=== PATIENT | female | born 1965 | race African-American/Black ===

== ENCOUNTER 2018-02-24 20:24 | Inpatient (IN) | payer MEDICAID ==
[2018-02-24] MEDS: IV NORMAL SALINE 1000ML BAG 1,000 ML IV ×2 (20:30→22:10)
[2018-02-24 21:01] LABS: ADD MAN DIFF? NO
[2018-02-24 21:06] LABS: BILIRUBIN,URINE NEGATIVE (NEG); CLARITY,URINE CLEAR; COLOR,URINE YELLOW; GLUCOSE,URINE >=1000 mg/dL (NEG); NITRITE,URINE NEGATIVE (NEG); PH,URINE 6.5; PROTEIN,URINE 100 mg/dL (NEG-TRACE); UROBILINOGEN,URINE 0.2 mg/dL (0.2 mg/dL)
[2018-02-24 21:07] LABS: BASO # 0.1 x10^3/uL (0.0-0.2); BASO % 1 % (0-3); EOS # 0.1 x10^3/uL (0.0-0.7); EOS % 1 % (0-3); HEMATOCRIT 35.1 % (36.0-47.0); HEMOGLOBIN 11.5 g/dL (12.0-15.5); LYMPH # 2.1 x10^3/uL (1.0-4.8); LYMPH % 19 % (24-48); MEAN CORPUSCULAR HEMOGLOBIN 29 pg (25-35); MEAN CORPUSCULAR HGB CONC 33 g/dL (31-37); MEAN CORPUSCULAR VOLUME 89 fL (79-100); MONO # 1.1 x10^3/uL (0.0-1.1); MONO % 10 % (0-9); NEUT # 7.6 x10^3uL (1.8-7.7); NEUT % 69 % (31-73); PLATELET COUNT 348 x10^3/uL (140-400); RED BLOOD COUNT 3.95 x10^6/uL (3.50-5.40); WHITE BLOOD COUNT 10.9 x10^3/uL (4.0-11.0)
[2018-02-24] MEDS: IPRATRPIUM/ALBUTEROL 0.5/2.5MG 3 ML NEBU. NEB (21:12)
[2018-02-24 21:13] LABS: BACTERIA,URINE FEW /HPF (0-FEW); SQUAMOUS EPITHELIAL CELL,UR FEW /LPF; WBC,URINE OCC /HPF (0-4)
[2018-02-24 21:16] LABS: ANION GAP 5 (6-14); BLOOD UREA NITROGEN 21 mg/dL (7-20); BUN/CREATININE RATIO 21 (6-20); CALCIUM 8.7 mg/dL (8.5-10.1); CARBON DIOXIDE 29 mmol/L (21-32); CHLORIDE 106 mmol/L (98-107); GFR 70.7; GLUCOSE 406 mg/dL (70-99); POTASSIUM 4.7 mmol/L (3.5-5.1); SODIUM 140 mmol/L (136-145)
[2018-02-24 21:23] LABS: ALBUMIN 2.8 g/dL (3.4-5.0); ALBUMIN/GLOBULIN RATIO 0.7 (1.0-1.7); ALK PHOS 145 U/L (46-116); ALT (SGPT) 44 U/L (14-59); AST (SGOT) 26 U/L (15-37); TOTAL BILIRUBIN 0.6 mg/dL (0.2-1.0); TOTAL PROTEIN 6.6 g/dL (6.4-8.2)
[2018-02-24 21:24] LABS: LACTIC ACID 1.5 mmol/L (0.4-2.0)
[2018-02-24 21:26] LABS: TROPONINI < 0.017 ng/mL (0.000-0.055)
[2018-02-24 21:30] LABS: CKMB MASS 1.5 ng/mL (0.0-3.6); CREATINE KINASE 156 U/L (26-192)
[2018-02-24 21:30] LABS: NT-PRO BNP 604 pg/mL (0-124)
[2018-02-24] MEDS ORDERED: ONDANSETRON PF 4 MG/2 ML VIAL. IV (22:45)
[2018-02-24] MEDS ORDERED: DEXTROSE 50% 25 GM / 50ML DISP.SYRIN. IV (22:45)
[2018-02-24] MEDS: methylPREDNISolone SOD SUCC PF 125 MG/2 ML VIAL. IV (22:54)
[2018-02-24] MEDS: ACETAMINOPHEN 325 MG TABLET. PO (23:25)
[2018-02-25 00:17] LABS: POC GLUCOSE 322 mg/dL (70-99)
[2018-02-25 01:31] LABS: LACTIC ACID 0.7 mmol/L (0.4-2.0)
[2018-02-25] MEDS: IV NORMAL SALINE 1000ML BAG 1,000 ML IV (01:40)
[2018-02-25] MEDS: INSULIN GLARGINE 300 UNITS/3 ML INSULN.PEN. SQ ×3 (01:45→21:25)
[2018-02-25] MEDS: INSULIN LISPRO 300 UNITS/3 ML INSULN.PEN. SQ ×7 (01:47→21:00)
[2018-02-25] MEDS: ACETAMINOPHEN 325 MG TABLET. PO ×2 (03:43→08:29)
[2018-02-25 07:07] LABS: ADD MAN DIFF? NO
[2018-02-25 07:21] LABS: BASO # 0.1 x10^3/uL (0.0-0.2); BASO % 1 % (0-3); EOS % 0 % (0-3); LYMPH # 0.8 x10^3/uL (1.0-4.8); LYMPH % 7 % (24-48); MEAN CORPUSCULAR HEMOGLOBIN 29 pg (25-35); MEAN CORPUSCULAR HGB CONC 32 g/dL (31-37); MEAN CORPUSCULAR VOLUME 88 fL (79-100); MONO # 0.2 x10^3/uL (0.0-1.1); MONO % 2 % (0-9); NEUT # 9.7 x10^3uL (1.8-7.7); NEUT % 90 % (31-73); PLATELET COUNT 359 x10^3/uL (140-400); RED CELL DISTRIBUTION WIDTH 14.5 % (11.5-14.5); WHITE BLOOD COUNT 10.8 x10^3/uL (4.0-11.0)
[2018-02-25] MEDS: methylPREDNISolone SOD SUCC PF 40 MG/ML VIAL. IV ×3 (07:21→17:13)
[2018-02-25 07:25] LABS: ANION GAP 8 (6-14); BLOOD UREA NITROGEN 26 mg/dL (7-20); CARBON DIOXIDE 26 mmol/L (21-32); CHLORIDE 104 mmol/L (98-107); CREATININE 0.9 mg/dL (0.6-1.0); GFR 79.9; GLUCOSE 401 mg/dL (70-99); POTASSIUM 4.7 mmol/L (3.5-5.1); SODIUM 138 mmol/L (136-145)
[2018-02-25] MEDS ORDERED: INSULIN LISPRO 300 UNITS/3 ML INSULN.PEN. SQ ×2 (08:00→16:30)
[2018-02-25] MEDS: IPRATRPIUM/ALBUTEROL 0.5/2.5MG 3 ML NEBU. NEB ×4 (08:04→20:24)
[2018-02-25 08:21] LABS: POC GLUCOSE 329 mg/dL (70-99)
[2018-02-25] MEDS: ASPIRIN CHEWABLE 81 MG TABLET. PO (08:26)
[2018-02-25] MEDS: ARIPiprazole 5 MG TABLET PO (08:27)
[2018-02-25] MEDS: CALCIUM CARB/VIT D3 500/200 TABLET. PO (08:27)
[2018-02-25] MEDS: amLODIPine BESYLATE 10 MG TABLET PO (08:27)
[2018-02-25] MEDS: LISINOPRIL 20 MG TABLET PO (08:28)
[2018-02-25] MEDS: DOCUSATE SODIUM 100 MG CAPSULE. PO (08:31)
[2018-02-25] MEDS ORDERED: INSULIN GLARGINE 300 UNITS/3 ML INSULN.PEN. SQ (09:00)
[2018-02-25] MEDS ORDERED: NON FORMULARY ITEM (Albuterol Sulfate (Ventolin Hfa Inhaler) 2 PUFF) INH (09:00)
[2018-02-25] MEDS: FUROSEMIDE 40 MG/4 ML VIAL. IVP (09:58)
[2018-02-25] MEDS ORDERED: CONTRAST GIVEN MC (11:15)
[2018-02-25] MEDS: cefTRIAXone IV Push 1 GM VIAL. IVP (11:27)
[2018-02-25] MEDS: IOHEXOL 300 MG/ML 100ML VIAL. IV (11:30)
[2018-02-25] MEDS: ALBUTEROL SULFATE 2.5 MG/3 ML NEBU. NEB ×2 (12:00→20:00)
[2018-02-25 12:13] LABS: POC GLUCOSE 391 mg/dL (70-99)
[2018-02-25] MEDS ORDERED: FUROSEMIDE 40 MG/4 ML VIAL. IVP (14:00)
[2018-02-25 17:23] LABS: POC GLUCOSE 246 mg/dL (70-99)
[2018-02-25 21:15] LABS: POC GLUCOSE 185 mg/dL (70-99)
[2018-02-25] MEDS: ATORVASTATIN CALCIUM 40 MG TABLET. PO (21:22)
[2018-02-26] MEDS: methylPREDNISolone SOD SUCC PF 40 MG/ML VIAL. IV ×2 (06:26)
[2018-02-26] MEDS: ONDANSETRON PF 4 MG/2 ML VIAL. IV (06:26)
[2018-02-26] MEDS: ALBUTEROL SULFATE 2.5 MG/3 ML NEBU. NEB (07:18)
[2018-02-26 07:56] LABS: POC GLUCOSE 241 mg/dL (70-99)
[2018-02-26] MEDS: DOCUSATE SODIUM 100 MG CAPSULE. PO (09:00)
[2018-02-26] MEDS: ACETAMINOPHEN 325 MG TABLET. PO (09:04)
[2018-02-26] MEDS: CALCIUM CARB/VIT D3 500/200 TABLET. PO (09:04)
[2018-02-26] MEDS: ASPIRIN CHEWABLE 81 MG TABLET. PO (09:05)
[2018-02-26] MEDS: ARIPiprazole 5 MG TABLET PO (09:05)
[2018-02-26] MEDS: amLODIPine BESYLATE 10 MG TABLET PO (09:05)
[2018-02-26] MEDS: LISINOPRIL 20 MG TABLET PO (09:05)
[2018-02-26] MEDS: FUROSEMIDE 40 MG/4 ML VIAL. IVP (09:06)
[2018-02-26] MEDS: INSULIN GLARGINE 300 UNITS/3 ML INSULN.PEN. SQ (09:26)
[2018-02-26] MEDS: INSULIN LISPRO 300 UNITS/3 ML INSULN.PEN. SQ ×3 (09:27→12:52)
[2018-02-26] MEDS ORDERED: LABETALOL 20 MG/4 ML DISP.SYRIN. IVP (09:30)
[2018-02-26] MEDS: cefTRIAXone IV Push 1 GM VIAL. IVP (11:00)
[2018-02-26 11:16] LABS: POC GLUCOSE 377 mg/dL (70-99)
[2018-02-26] MEDS: FUROSEMIDE 40 MG TABLET. PO (12:46)
[2018-02-26] MEDS ORDERED: methylPREDNISolone SOD SUCC PF 40 MG/ML VIAL. IV (21:00)
== END 2018-02-26 13:20 | disposition home or self-care (01) | DRG 637 ==
LOC: ER 20:24 → 2 SOUTH 22:09
DX: E11.65 Type 2 diabetes mellitus with hyperglycemia (principal); J96.01 Acute respiratory failure with hypoxia; Z68.42 Body mass index [BMI] 45.0-49.9, adult; I11.0 Hypertensive heart disease with heart failure; I50.9 Heart failure, unspecified; J44.9 Chronic obstructive pulmonary disease, unspecified; E66.01 Morbid (severe) obesity due to excess calories; G47.33 Obstructive sleep apnea (adult) (pediatric); E78.00 Pure hypercholesterolemia, unspecified; M76.9 Unspecified enthesopathy, lower limb, excluding foot; M17.9 Osteoarthritis of knee, unspecified; F17.210 Nicotine dependence, cigarettes, uncomplicated; Z79.4 Long term (current) use of insulin; Z79.82 Long term (current) use of aspirin; Z79.899 Other long term (current) drug therapy; Z90.49 Acquired absence of other specified parts of digestive tract; Z82.49 Family history of ischemic heart disease and other diseases of the circulatory system; Z71.6 Tobacco abuse counseling; Z87.01 Personal history of pneumonia (recurrent)
CPT/HCPCS: 36415; 71045; 71275; 72170; 80048; 80053; 81001; 82553; 82962; 83605; 83880; 84484; 85025; 87040; 93005; 93306; 93970; 94640; 96374; 97161-GP; 97165-GO; 99285; 99285-25; 99406; J0696; J1815; J1940; J2405; J2920; J2930; J7030; J7613; J7620; Q9967